=== PATIENT | male | born 1975 | race Caucasian/White ===

== ENCOUNTER 2025-08-11 16:38 | Inpatient (IN) | payer OTHER, MEDICAID ==
[~2025-08-11] VITALS: Ht 177.8 cm; Wt 85.3 kg
[2025-08-11 17:05] VITALS: O2SAT 96
[2025-08-11 17:22] LABS: PLATELET COUNT (AUTO) 567 K/uL (150-450); RED BLOOD CELL COUNT(AUTO) 2.95 MIL/uL (4.5-6.0); RED CELL DISTRIBUTION WIDTH 16.4 % (11.5-15.0); WHITE BLOOD COUNT (AUTO) 23.8 K/uL (4.3-11.0)
[2025-08-11 17:35] LABS: CALCIUM, SERUM 9.9 mg/dL (8.5-10.1); CREATININE 4.8 mg/dL (0.6-1.3); SODIUM SERUM 136 mmol/L (136-145)
[2025-08-11 17:38] LABS: INR 1.15 (0.91-1.10)
[2025-08-11 17:40] LABS: UREA NITROGEN, BLOOD 83 mg/dL (7-18)
[2025-08-11 17:43] LABS: LACTIC ACID 1.7 mmol/L (0.4-2.0)
[2025-08-11 17:48] LABS: ASPARTATE AMINOTRANSFERASE 48 U/L (15-37); TOTAL PROTEIN, SERUM 9.2 g/dL (6.4-8.2)
[2025-08-11 17:49] LABS: NT-PRO BNP 43547 pg/mL (0-125)
[2025-08-11] MEDS ORDERED: INSULIN REGULAR, HUMAN 100 UNIT/ML 10 ML VIAL ONE (17:51)
[2025-08-11] MEDS ORDERED: SODIUM ZIRCONIUM CYCLOSILICATE 10 GM POWD.PACK ONE (17:51)
[2025-08-11] MEDS: INSULIN REGULAR, HUMAN 100 UNIT/ML 10 ML VIAL IV ONE (17:58)
[2025-08-11 18:08] LABS: ABG BASE EXCESS 6.5 mmol/L (-2.0-3.0); ABG OXYGEN SATURATION 98.7 % (94.0-98.0); ABG PCO2 35.4 mmHg (35.0-48.0); ABG PH 7.537 (7.350-7.450); ABG PO2 123.7 mmHg (83.0-108.0); ABG TOTAL HEMOGLOBIN 9.0 G/dL (13.5-17.5); FLOW, BLOOD GAS 5.00 L/min (0.00-30.00); FRACTIONATED INSPIRED OXYGEN 40.0 %; SITE, ABG LEFT RADIAL
[2025-08-11] MEDS: SODIUM ZIRCONIUM CYCLOSILICATE 10 GM POWD.PACK GT ONE (18:20)
[2025-08-11] MEDS ORDERED: CHOL100043 GT (18:56)
[2025-08-11] MEDS ORDERED: ASCO500T10 GT (18:56)
[2025-08-11] MEDS ORDERED: METO5TAB2 GT (18:56)
[2025-08-11] MEDS ORDERED: SUCR1ORA15 GT (18:56)
[2025-08-11] MEDS ORDERED: IPRA0.2S49 IH (18:56)
[2025-08-11] MEDS ORDERED: MINO2.5T2 GT (18:56)
[2025-08-11] MEDS ORDERED: INSU100V42 SQ (18:56)
[2025-08-11] MEDS ORDERED: AMIN30LI2 GT (18:56)
[2025-08-11] MEDS ORDERED: AMLO-212 GT (18:56)
[2025-08-11] MEDS ORDERED: VITA1TAB57 GT (18:56)
[2025-08-11] MEDS ORDERED: PANT20TA17 GT (18:56)
[2025-08-11] MEDS ORDERED: IPRA3AMP23 IH (18:56)
[2025-08-11] MEDS ORDERED: ONDA-97 GT (18:56)
[2025-08-11] MEDS ORDERED: [UNRECOGNIZED DRUG - CODE] IV (18:56)
[2025-08-11] MEDS ORDERED: BISA10SU11 RC (18:56)
[2025-08-11] MEDS ORDERED: ZINC220C6 GT (18:56)
[2025-08-11] MEDS ORDERED: METO25TA6 GT (18:56)
[2025-08-11] MEDS ORDERED: METO5TAB87 GT (18:56)
[2025-08-11] MEDS ORDERED: CALC1SOL2 GT (18:56)
[2025-08-11] MEDS ORDERED: ACET160L44 GT ×2 (18:56)
[2025-08-11] MEDS ORDERED: MIDO10TA GT (18:56)
[2025-08-11] MEDS ORDERED: HYDR-4077 GT (18:56)
[2025-08-11] MEDS ORDERED: COLL30OI TP (18:56)
[2025-08-11] MEDS ORDERED: HEPA500039 SQ (18:56)
[2025-08-11] MEDS ORDERED: ATOR40TA GT (18:56)
[2025-08-11 19:50] VITALS: O2SAT 100
[2025-08-11 20:35] VITALS: BP 111/54; TEMP 98.2; O2SAT 100
[2025-08-11] MEDS ORDERED: Z GUARD REMEDY 4 OZ OINT TP PRN (21:30)
[2025-08-11] MEDS ORDERED: ONDANSETRON HCL/PF 4 MG/2 ML VIAL IVP PRN (21:30)
[2025-08-11] MEDS ORDERED: MAGNESIUM HYDROXIDE 30 ML UDC GT PRN (21:30)
[2025-08-11] MEDS ORDERED: MAG HYDROX/AL HYDROX/SIMETH 30 ML UDC GT PRN (21:30)
[2025-08-11] MEDS: CEFTRIAXONE 1GM BAG (ER ONLY) 50 ML IV ONE (21:55)
[2025-08-11] MEDS ORDERED: INSULIN REGULAR, HUMAN 100 UNIT/ML 3 ML VIAL SQ PRN (22:00)
[2025-08-11] MEDS ORDERED: BLOOD SUGAR DIAGNOSTIC 1 EACH STRIP IN SCH (22:00)
[2025-08-11] MEDS ORDERED: DEXTROSE 50%-WATER 50 ML DISP.SYRIN IV PRN (22:00)
[2025-08-11] MEDS: CEFTRIAXONE 1 G in IV D5W 50 ML IV SCH (22:20)
[2025-08-11] MEDS ORDERED: Medication Not On Formulary EA (Ipratropium/Albuterol Sulfate (Duoneb 2.5-0.5 Mg/3 Ml So IH PRN (22:30)
[2025-08-11] MEDS ORDERED: BISACODYL SUPP (10 MG) 10 MG/SUPP.RECT SUPP.RECT RC PRN (22:30)
[2025-08-11] MEDS ORDERED: AZITHROMYCIN 500 MG VIAL ONE (22:59)
[2025-08-11] MEDS ORDERED: IPRATROPIUM NEB FS 0.5 MG/2.5 ML AMPUL.NEB IH PRN (23:00)
[2025-08-11] MEDS: AZITHROMYCIN 500 MG in IV D5W 250 ML IV SCH (23:03)
[2025-08-11 23:08] VITALS: O2SAT 100
[2025-08-12] VITALS (18 sets, daily range): BP systolic 105–119; BP diastolic 46–59; TEMP 97.6–101.5; O2SAT 91–100
[2025-08-12] MEDS ORDERED: DEXTROSE 50%-WATER 50 ML DISP.SYRIN IV PRN
[2025-08-12] MEDS: BLOOD SUGAR DIAGNOSTIC 1 EACH STRIP IN SCH (00:10)
[2025-08-12] MEDS: INSULIN REGULAR, HUMAN 100 UNIT/ML 3 ML VIAL SQ PRN (00:11)
[2025-08-12] MEDS: IPRATROPIUM NEB FS 0.5 MG/2.5 ML AMPUL.NEB IH SCH (02:13)
[2025-08-12] MEDS ORDERED: DOSING PER PHARMACY-CEFEPIME IVPB XX PRN (03:00)
[2025-08-12] MEDS ORDERED: DOSING PER PHARMACY-VANCOMYCIN IV XX PRN (03:00)
[2025-08-12] MEDS ORDERED: ALBUMIN HUMAN IV PRN ×2 (03:30)
[2025-08-12] MEDS: VANCOMYCIN 1 GM /D5W 250 ML PB IV ONE (03:50)
[2025-08-12] MEDS: VANCOMYCIN 1.75 GM in IV D5W 500 ML IV ONE (03:51)
[2025-08-12] MEDS ORDERED: CEFEPIME 1 GM VIAL ONE (04:59)
[2025-08-12] MEDS: CEFEPIME 1 GM in IV D5W 50 ML IV SCH (05:18)
[2025-08-12 07:09] LABS: PLATELET COUNT (AUTO) 477 K/uL (150-450); RED BLOOD CELL COUNT(AUTO) 2.75 MIL/uL (4.5-6.0); RED CELL DISTRIBUTION WIDTH 16.3 % (11.5-15.0); WHITE BLOOD COUNT (AUTO) 16.7 K/uL (4.3-11.0)
[2025-08-12 07:28] LABS: CALCIUM, SERUM 9.8 mg/dL (8.5-10.1); CREATININE 5.6 mg/dL (0.6-1.3); PHOSPHORUS 4.2 mg/dL (2.5-4.9); SODIUM SERUM 134.0 mmol/L (136-145)
[2025-08-12] MEDS ORDERED: VANCOMYCIN 500 MG in IV D5W 100 ML IV PRN (07:30)
[2025-08-12 07:33] LABS: UREA NITROGEN, BLOOD 96.0 mg/dL (7-18)
[2025-08-12] MEDS ORDERED: CALCITRIOL ORAL SOLUTION 1 MCG/ML GT SCH (09:00)
[2025-08-12] MEDS ORDERED: HEPARIN SODIUM, PORCINE 5000 UNITS/1 ML VIAL SQ SCH (09:00)
[2025-08-12] MEDS: DAKINS QUARTER STRENGTH (0.125%) 480 ML BOTTLE TOP SCH (09:47)
[2025-08-12] MEDS: ZINC SULFATE 220 MG CAPSULE GT SCH (09:47)
[2025-08-12] MEDS: PANTOPRAZOLE 40 MG VIAL IV SCH (09:47)
[2025-08-12] MEDS: PROSOURCE / PROSTAT (PYXIS) 30 ML UDC GT SCH (09:47)
[2025-08-12] MEDS: ASCORBIC ACID 500 MG TABLET GT SCH (09:47)
[2025-08-12] MEDS: VITAMIN B COMP W-C 1 TAB TABLET GT SCH (09:48)
[2025-08-12] MEDS: METOPROLOL TARTRATE 25 MG TABLET GT SCH (09:49)
[2025-08-12] MEDS: SUCRALFATE 1 G/10 ML UDC GT SCH (09:50)
[2025-08-12] MEDS: CHOLECALCIFEROL 1,000 UNIT TABLET (VIT D3) GT SCH (09:50)
[2025-08-12] MEDS: MINOXIDIL (2.5MG) 2.5 MG TABLET GT SCH (09:50)
[2025-08-12] MEDS: AMLODIPINE BESYLATE 5 MG TABLET GT SCH (09:50)
[2025-08-12] MEDS: THERAHONEY GEL 1.5 OZ TUBE TP SCH (09:51)
[2025-08-12] MEDS: ALBUMIN 25% 25 GM in PREMIX 1 EA IV PRN (15:12)
[2025-08-12] MEDS: NEPRO 1,000 ML BOTTLE GT PRN (16:59)
[2025-08-12] MEDS: ACETAMINOPHEN 325 MG TABLET PO PRN (20:48)
[2025-08-12] MEDS: ATORVASTATIN 40 MG TABLET GT SCH (22:17)
[2025-08-13] VITALS (62 sets, daily range): BP systolic 58–134; BP diastolic 36–93; TEMP 98.5–100.5; O2SAT 85–100
[2025-08-13 04:48] LABS: PLATELET COUNT (AUTO) 527 K/uL (150-450); RED BLOOD CELL COUNT(AUTO) 2.60 MIL/uL (4.5-6.0); RED CELL DISTRIBUTION WIDTH 17.4 % (11.5-15.0)
[2025-08-13 04:56] LABS: CALCIUM, SERUM 10.3 mg/dL (8.5-10.1); CREATININE 4.5 mg/dL (0.6-1.3); SODIUM SERUM 136.0 mmol/L (136-145); UREA NITROGEN, BLOOD 65.0 mg/dL (7-18)
[2025-08-13 05:02] LABS: ASPARTATE AMINOTRANSFERASE 64.0 U/L (15-37); TOTAL PROTEIN, SERUM 8.8 g/dL (6.4-8.2)
[2025-08-13] MEDS: PHENYLEPHRINE 10 MG/ML VIAL ONE (05:03)
[2025-08-13] MEDS: PHENYLEPHRINE 50 MG in IV NS 0.9% 245 ML IV PRN (05:08)
[2025-08-13 05:22] LABS: ABG BASE EXCESS -1.5 mmol/L (-2.0-3.0); ABG OXYGEN SATURATION 100.0 % (94.0-98.0); ABG PCO2 30.6 mmHg (35.0-48.0); ABG PH 7.468 (7.350-7.450); ABG PO2 377.2 mmHg (83.0-108.0); ABG TOTAL HEMOGLOBIN 9.3 G/dL (13.5-17.5); PEEP,BG 0 cm H2O; SET RATE, BG 28.0; SITE, ABG RIGHT BRACHIAL; VT, ABG 500 mL
[2025-08-13 05:23] LABS: LACTIC ACID 6.1 mmol/L (0.4-2.0)
[2025-08-13 05:23] LABS: WHITE BLOOD COUNT (AUTO) 35.0 K/uL (4.3-11.0)
[2025-08-13 05:55] LABS: EOSINOPHILS % (MANUAL) 1 % (0-4); LYMPHOCYTES % (MANUAL) 32 % (16-48); MONOCYTES % (MANUAL) 4 % (0-11.0); NEUTROPHILS % (MANUAL) 57 (42-76)
[2025-08-13 05:58] LABS: PLATELET ESTIMATE INCREASED
[2025-08-13] MEDS ORDERED: CALCIUM CHLORIDE 1,000 MG/10 ML DISP.SYRIN IV ONE (07:52)
[2025-08-13] MEDS ORDERED: EPINEPHRINE (1:10,000) SYRINGE 1 MG/10 ML DISP.SYRIN IVP ONE (07:52)
[2025-08-13] MEDS: PANTOPRAZOLE 40 MG/PACK PACK NG SCH (08:37)
[2025-08-13 08:50] LABS: LACTIC ACID REFLEX 2.1 mmol/L (0.4-1.9)
[2025-08-13] MEDS: CEFEPIME 1 GM in IV D5W 50 ML IV SCH (08:50)
[2025-08-13] MEDS ORDERED: DAPTOMYCIN 500 MG in IV NS 0.9% 50 ML IV SCH (09:00)
[2025-08-13] MEDS ORDERED: DAPTOMYCIN 800 MG in IV NS 0.9% 50 ML IV SCH (09:00)
[2025-08-13 10:09] LABS: CALCIUM, SERUM 10.8 mg/dL (8.5-10.1); CREATININE 4.9 mg/dL (0.6-1.3); SODIUM SERUM 141.0 mmol/L (136-145); UREA NITROGEN, BLOOD 73.0 mg/dL (7-18)
[2025-08-13] MEDS: LINEZOLID RTU BAG 600 MG in PREMIX 1 EA IV SCH (10:28)
[2025-08-13] MEDS: CALCITRIOL ORAL SOLUTION 1 MCG/ML GT SCH (12:13)
[2025-08-13 16:20] LABS: HIV-1/2 ANTIBODY REACTIVE (NONREACTIVE)
[2025-08-13] MEDS: DAKINS QUARTER STRENGTH (0.125%) 480 ML BOTTLE TOP SCH (19:59)
[2025-08-14] VITALS (34 sets, daily range): BP systolic 90–134; BP diastolic 41–61; TEMP 98.8–100.1; O2SAT 97–100
[2025-08-14 04:32] LABS: PLATELET COUNT (AUTO) 523 K/uL (150-450); RED BLOOD CELL COUNT(AUTO) 2.75 MIL/uL (4.5-6.0); RED CELL DISTRIBUTION WIDTH 16.8 % (11.5-15.0); WHITE BLOOD COUNT (AUTO) 16.0 K/uL (4.3-11.0)
[2025-08-14 04:40] LABS: CALCIUM, SERUM 10.3 mg/dL (8.5-10.1); SODIUM SERUM 142.0 mmol/L (136-145)
[2025-08-14 04:44] LABS: PHOSPHORUS 2.6 mg/dL (2.5-4.9)
[2025-08-14 04:51] LABS: CREATININE 5.4 mg/dL (0.6-1.3)
[2025-08-14 05:07] LABS: UREA NITROGEN, BLOOD 82.0 mg/dL (7-18)
[2025-08-14] MEDS: EPOETIN ALFA (10,000 UNIT) 10,000 UNIT/ML VIAL SQ SCH (17:16)
[2025-08-14] MEDS ORDERED: MICAFUNGIN SODIUM 150 MG in IV NS 0.9% 100 ML IV SCH (23:00)
[2025-08-14] MEDS: ACETYLCYSTEINE 10% SOLN 400 MG/4 ML VIAL NEB SCH (23:03)
[2025-08-14] MEDS: MEROPENEM 500MG/NS 50 ML PB IV ONE (23:16)
[2025-08-14] MEDS: MEROPENEM 500 MG in IV NS 0.9% 50 ML IV SCH (23:17)
[2025-08-14] MEDS ORDERED: MICAFUNGIN SODIUM 100 MG VIAL IV ONE (23:32)
[2025-08-15] VITALS (24 sets, daily range): BP systolic 95–134; BP diastolic 44–59; TEMP 98.2–101.1; O2SAT 97–100
[2025-08-15 04:56] LABS: PLATELET COUNT (AUTO) 497 K/uL (150-450); RED BLOOD CELL COUNT(AUTO) 2.52 MIL/uL (4.5-6.0); RED CELL DISTRIBUTION WIDTH 17.2 % (11.5-15.0); WHITE BLOOD COUNT (AUTO) 20.0 K/uL (4.3-11.0)
[2025-08-15 05:00] LABS: CALCIUM, SERUM 9.4 mg/dL (8.5-10.1); CREATININE 3.8 mg/dL (0.6-1.3); SODIUM SERUM 136.0 mmol/L (136-145); UREA NITROGEN, BLOOD 48.0 mg/dL (7-18)
[2025-08-15 05:03] LABS: PHOSPHORUS 2.3 mg/dL (2.5-4.9)
[2025-08-15] MEDS ORDERED: MICAFUNGIN SODIUM 150 MG in IV NS 0.9% 100 ML IV SCH ×2 (07:30→08:00)
[2025-08-15] MEDS: MICAFUNGIN SODIUM 100 MG in IV NS 0.9% 100 ML IV SCH (08:45)
[2025-08-15] MEDS ORDERED: VANCOMYCIN HCL 1.25 GM in IV D5W 260 ML IV ONE (13:30)
[2025-08-15] MEDS ORDERED: DOSING PER PHARMACY-VANCOMYCIN IV XX PRN (15:00)
[2025-08-15] MEDS ORDERED: VANCOMYCIN HCL 1.25 GM in IV D5W 250 ML IV ONE (15:00)
[2025-08-15] MEDS: ACETAMINOPHEN 650 MG/20.3 ML UDC GT PRN (20:17)
[2025-08-15] MEDS ORDERED: ACETAMINOPHEN 325 MG TABLET MC PRN (20:30)
[2025-08-16] VITALS (24 sets, daily range): BP systolic 87–167; BP diastolic 40–69; TEMP 97.8–101.2; O2SAT 98–100
[2025-08-16] MEDS ORDERED: DEXTROSE 50%-WATER 50 ML DISP.SYRIN IV PRN
[2025-08-16 04:56] LABS: PLATELET COUNT (AUTO) 548 K/uL (150-450); RED BLOOD CELL COUNT(AUTO) 2.86 MIL/uL (4.5-6.0); RED CELL DISTRIBUTION WIDTH 16.9 % (11.5-15.0); WHITE BLOOD COUNT (AUTO) 17.2 K/uL (4.3-11.0)
[2025-08-16 05:18] LABS: CALCIUM, SERUM 10.2 mg/dL (8.5-10.1); CREATININE 5.1 mg/dL (0.6-1.3); SODIUM SERUM 137.0 mmol/L (136-145); UREA NITROGEN, BLOOD 75.0 mg/dL (7-18)
[2025-08-16] MEDS: BLOOD SUGAR DIAGNOSTIC 1 EACH STRIP IN SCH (06:12)
[2025-08-16] MEDS: INSULIN REGULAR, HUMAN 100 UNIT/ML 3 ML VIAL SQ PRN (06:14)
[2025-08-16 06:52] LABS: PHOSPHORUS 3.0 mg/dL (2.5-4.9)
[2025-08-16 07:07] LABS: *BASOS 0 % (Not Estab.); *BASOS, ABSOLUTE 0.1 x10E3/uL (0.0-0.2); *EOS 1 % (Not Estab.); *EOS, ABSOLUTE 0.2 x10E3/uL (0.0-0.4); *HCT 22.9 % (37.5-51.0); *HGB 6.8 g/dL (13.0-17.7); *IMMATURE GRANULOCYTES 1 % (Not Estab.); *IMMATURE GRANULOCYTES(ABS) 0.2 x10E3/uL (0.0-0.1); *LYMPHOCYTES 16 % (Not Estab.); *LYMPHS, ABSOLUTE 3.1 x10E3/uL (0.7-3.1); *MCH 28.3 pg (26.6-33.0); *MCHC 29.7 g/dL (31.5-35.7); *MCV 95 fL (79-97); *MONOCYTES 5 % (Not Estab.); *MONOS, ABSOLUTE 0.9 x10E3/uL (0.1-0.9); *NEUTROPHILS 77 % (Not Estab.); *NEUTROPHILS, ABSOLUTE 14.9 x10E3/uL (1.4-7.0); *PLT 531 x10E3/uL (150-450); *RBC 2.40 x10E6/uL (4.14-5.80); *RDW 14.6 % (11.6-15.4); *WBC 19.2 x10E3/uL (3.4-10.8)
[2025-08-17] VITALS (8 sets, daily range): BP systolic 91–166; BP diastolic 45–64; TEMP 98.1–102.7; O2SAT 96–100
[2025-08-17 06:42] LABS: PLATELET COUNT (AUTO) 546 K/uL (150-450); RED BLOOD CELL COUNT(AUTO) 2.87 MIL/uL (4.5-6.0); RED CELL DISTRIBUTION WIDTH 16.1 % (11.5-15.0); WHITE BLOOD COUNT (AUTO) 15.4 K/uL (4.3-11.0)
[2025-08-17 06:49] LABS: CALCIUM, SERUM 10.3 mg/dL (8.5-10.1); CREATININE 4.1 mg/dL (0.6-1.3); SODIUM SERUM 138.0 mmol/L (136-145); UREA NITROGEN, BLOOD 55.0 mg/dL (7-18)
[2025-08-17 06:55] LABS: PHOSPHORUS 3.2 mg/dL (2.5-4.9)
[2025-08-17 11:09] LABS: *% CD 4 POS. LYMPH 34.2 % (30.8-58.5); *% CD 8 POS. LYMPH 56.4 % (12.0-35.5); *ABSOLUTE CD 4 HELPER 1060 /uL (359-1519); *ABSOLUTE CD 8 SUPPRESSOR 1748 /uL (109-897); *CD4/CD8 RATIO 0.61 (0.92-3.72)
[2025-08-18] VITALS (8 sets, daily range): BP systolic 92–167; BP diastolic 43–67; TEMP 97.7–102; O2SAT 100
[2025-08-18 06:27] LABS: PLATELET COUNT (AUTO) 572 K/uL (150-450); RED BLOOD CELL COUNT(AUTO) 3.28 MIL/uL (4.5-6.0); RED CELL DISTRIBUTION WIDTH 16.6 % (11.5-15.0); WHITE BLOOD COUNT (AUTO) 19.2 K/uL (4.3-11.0)
[2025-08-18 06:34] LABS: CALCIUM, SERUM 10.2 mg/dL (8.5-10.1); CREATININE 5.4 mg/dL (0.6-1.3); SODIUM SERUM 136.0 mmol/L (136-145)
[2025-08-18 06:52] LABS: UREA NITROGEN, BLOOD 88.0 mg/dL (7-18)
[2025-08-18 07:19] LABS: PHOSPHORUS 3.9 mg/dL (2.5-4.9)
[2025-08-18] MEDS ORDERED: IV NS 0.9% 250 ML IV ONE (14:12)
[2025-08-18] MEDS ORDERED: IOHEXOL-300 100 ML VIAL IV ONE (14:12)
[2025-08-18] MEDS ORDERED: CT SWABBABLE VALVE TRANS SET 1 EA INFUS.SET MC ONE (14:12)
[2025-08-18] MEDS: MIDODRINE HCL (5MG) 5 MG TABLET PO SCH (16:02)
[2025-08-18] MEDS: IV NS 0.9% 250 ML IV ONE (16:08)
[2025-08-18 20:08] LABS: LEGIONELLA PNEUMOPHILIA AB Non Reactive (Non Reactive)
[2025-08-19] VITALS (10 sets, daily range): BP systolic 100–128; BP diastolic 45–63; TEMP 97.7–98.7; O2SAT 100
[2025-08-19 07:09] LABS: *HIV-1 RNA BY PCR 43700.0 copies/mL (.); *HIV-1 log10 RNA 4.64 (.)
[2025-08-19 07:39] LABS: CALCIUM, SERUM 10.7 mg/dL (8.5-10.1); CREATININE 4.0 mg/dL (0.6-1.3); SODIUM SERUM 139.0 mmol/L (136-145); UREA NITROGEN, BLOOD 76.0 mg/dL (7-18)
[2025-08-19 08:57] LABS: PLATELET COUNT (AUTO) 556 K/uL (150-450); RED BLOOD CELL COUNT(AUTO) 2.19 MIL/uL (4.5-6.0); RED CELL DISTRIBUTION WIDTH 16.0 % (11.5-15.0); WHITE BLOOD COUNT (AUTO) 19.3 K/uL (4.3-11.0)
[2025-08-19] MEDS: PANTOPRAZOLE 40 MG VIAL IV SCH (09:14)
[2025-08-19 09:20] LABS: EOSINOPHILS % (MANUAL) 1 % (0-4); LYMPHOCYTES % (MANUAL) 12 % (16-48); MONOCYTES % (MANUAL) 2 % (0-11.0); NEUTROPHILS % (MANUAL) 85 (42-76); PLATELET ESTIMATE INCREASED
[2025-08-20] VITALS (7 sets, daily range): BP systolic 103–151; BP diastolic 50–60; TEMP 98.6–99; O2SAT 96–100
[2025-08-20 06:44] LABS: PLATELET COUNT (AUTO) 644 K/uL (150-450); RED BLOOD CELL COUNT(AUTO) 2.75 MIL/uL (4.5-6.0); RED CELL DISTRIBUTION WIDTH 15.7 % (11.5-15.0); WHITE BLOOD COUNT (AUTO) 19.2 K/uL (4.3-11.0)
[2025-08-20] MEDS ORDERED: ANESTHESIA TRAY IN PYXIS 1 EA TRAY MC ONE ×2 (07:19→09:52)
[2025-08-20 07:32] LABS: INR 1.19 (0.91-1.10)
[2025-08-20 07:37] LABS: CALCIUM, SERUM 10.1 mg/dL (8.5-10.1); CREATININE 5.5 mg/dL (0.6-1.3); PHOSPHORUS 2.8 mg/dL (2.5-4.9); SODIUM SERUM 137.0 mmol/L (136-145)
[2025-08-20 08:13] LABS: UREA NITROGEN, BLOOD 91.0 mg/dL (7-18)
[2025-08-20] MEDS: VANCOMYCIN POST DIALYSIS 500MG IV PRN (17:28)
[2025-08-21] VITALS: BP 111/51; TEMP 98.8; O2SAT 99
[2025-08-21 04:00] VITALS: BP 110/55; TEMP 98; O2SAT 99
[2025-08-21 07:06] LABS: CALCIUM, SERUM 9.5 mg/dL (8.5-10.1); CREATININE 3.9 mg/dL (0.6-1.3); PHOSPHORUS 2.4 mg/dL (2.5-4.9); SODIUM SERUM 139.0 mmol/L (136-145); UREA NITROGEN, BLOOD 54.0 mg/dL (7-18)
[2025-08-21 07:11] LABS: PLATELET COUNT (AUTO) 597 K/uL (150-450); RED BLOOD CELL COUNT(AUTO) 2.52 MIL/uL (4.5-6.0); RED CELL DISTRIBUTION WIDTH 16.3 % (11.5-15.0); WHITE BLOOD COUNT (AUTO) 14.9 K/uL (4.3-11.0)
[2025-08-21 08:00] VITALS: BP 114/57; TEMP 98.7; O2SAT 100
[2025-08-21] MEDS ORDERED: EPINEPHRINE (1:10,000) SYRINGE 1 MG/10 ML DISP.SYRIN IVP ONE (10:15)
[2025-08-21 12:00] VITALS: BP 122/52; TEMP 100; O2SAT 97
[2025-08-21 16:00] VITALS: BP 110/52; TEMP 98.6; O2SAT 100
[2025-08-21] MEDS: NEUTRA PHOS 1 POWD.PACKET GT ONE (16:05)
[2025-08-21 20:00] VITALS: BP 129/62; TEMP 99; O2SAT 100
[2025-08-22] VITALS: BP 121/62; TEMP 98.8; O2SAT 100
[2025-08-22 04:00] VITALS: BP 102/49; TEMP 98.2; O2SAT 100
[2025-08-22 06:49] LABS: PLATELET COUNT (AUTO) 673 K/uL (150-450); RED BLOOD CELL COUNT(AUTO) 2.63 MIL/uL (4.5-6.0); RED CELL DISTRIBUTION WIDTH 16.4 % (11.5-15.0); WHITE BLOOD COUNT (AUTO) 18.5 K/uL (4.3-11.0)
[2025-08-22 07:09] LABS: CALCIUM, SERUM 10.1 mg/dL (8.5-10.1); CREATININE 4.9 mg/dL (0.6-1.3); PHOSPHORUS 3.4 mg/dL (2.5-4.9); SODIUM SERUM 138.0 mmol/L (136-145); UREA NITROGEN, BLOOD 73.0 mg/dL (7-18)
[2025-08-22 08:00] VITALS: BP 129/52; TEMP 97.1; O2SAT 100
[2025-08-22 12:00] VITALS: BP 114/54; TEMP 97.9; O2SAT 100
[2025-08-22 16:00] VITALS: BP 94/46; TEMP 96.6; O2SAT 100
[2025-08-22 20:00] VITALS: BP 135/63; TEMP 96.8; O2SAT 100
[2025-08-22] MEDS ORDERED: MEROPENEM 500 MG VIAL IV ONE (23:18)
[2025-08-23] VITALS: BP 115/53; TEMP 97.3; O2SAT 100
[2025-08-23 04:00] VITALS: BP 114/53; TEMP 98.2; O2SAT 100
[2025-08-23 06:25] LABS: PLATELET COUNT (AUTO) 626 K/uL (150-450); RED BLOOD CELL COUNT(AUTO) 2.54 MIL/uL (4.5-6.0); RED CELL DISTRIBUTION WIDTH 16.6 % (11.5-15.0); WHITE BLOOD COUNT (AUTO) 16.3 K/uL (4.3-11.0)
[2025-08-23 06:32] LABS: CALCIUM, SERUM 9.6 mg/dL (8.5-10.1); CREATININE 3.7 mg/dL (0.6-1.3); SODIUM SERUM 135.0 mmol/L (136-145); UREA NITROGEN, BLOOD 54.0 mg/dL (7-18)
[2025-08-23 06:37] LABS: PHOSPHORUS 2.6 mg/dL (2.5-4.9)
[2025-08-23 08:00] VITALS: BP 113/59; TEMP 98.6; O2SAT 100
[2025-08-23 12:00] VITALS: BP 113/48; TEMP 97.9; O2SAT 100
[2025-08-23] MEDS ORDERED: MISCELLANEOUS MED 1 EA EA XX ONE (15:00)
[2025-08-23 16:00] VITALS: BP 109/62; TEMP 98; O2SAT 100
[2025-08-23] MEDS: CEFTAZIDIME/AVIBACTAM 0.94 GM in IV NS 0.9% 100 ML IV SCH (16:02)
[2025-08-23 20:00] VITALS: BP 107/53; TEMP 99.5; O2SAT 100
[2025-08-23] MEDS: METRONIDAZOLE 500 MG TABLET NG SCH (21:04)
[2025-08-24] VITALS: BP 132/57; TEMP 99.9; O2SAT 100
[2025-08-24 04:00] VITALS: BP 95/41; TEMP 97.7; O2SAT 100
[2025-08-24 06:45] LABS: PLATELET COUNT (AUTO) 655 K/uL (150-450); RED BLOOD CELL COUNT(AUTO) 2.67 MIL/uL (4.5-6.0); RED CELL DISTRIBUTION WIDTH 17.0 % (11.5-15.0); WHITE BLOOD COUNT (AUTO) 12.2 K/uL (4.3-11.0)
[2025-08-24 07:18] LABS: CALCIUM, SERUM 10.1 mg/dL (8.5-10.1); CREATININE 4.8 mg/dL (0.6-1.3); PHOSPHORUS 2.6 mg/dL (2.5-4.9); SODIUM SERUM 137.0 mmol/L (136-145); UREA NITROGEN, BLOOD 76.0 mg/dL (7-18)
[2025-08-24 07:19] LABS: INR 1.14 (0.91-1.10)
[2025-08-24 08:00] VITALS: BP 143/54; TEMP 97.9; O2SAT 100
[2025-08-24 12:05] VITALS: BP 141/58; TEMP 97.9; O2SAT 100
[2025-08-24 16:00] VITALS: BP 135/62; TEMP 98; O2SAT 100
[2025-08-24 20:00] VITALS: BP 135/57; TEMP 98; O2SAT 100
[2025-08-25] VITALS: BP 133/60; TEMP 98; O2SAT 100
[2025-08-25 04:00] VITALS: BP 105/51; TEMP 98; O2SAT 100
[2025-08-25 07:37] LABS: PLATELET COUNT (AUTO) 683 K/uL (150-450); RED BLOOD CELL COUNT(AUTO) 2.63 MIL/uL (4.5-6.0); RED CELL DISTRIBUTION WIDTH 16.6 % (11.5-15.0); WHITE BLOOD COUNT (AUTO) 12.6 K/uL (4.3-11.0)
[2025-08-25 08:00] VITALS: BP 124/52; TEMP 97.9; O2SAT 99
[2025-08-25 08:03] LABS: CALCIUM, SERUM 9.4 mg/dL (8.5-10.1); CREATININE 3.6 mg/dL (0.6-1.3); PHOSPHORUS 3.0 mg/dL (2.5-4.9); SODIUM SERUM 142.0 mmol/L (136-145); UREA NITROGEN, BLOOD 43.0 mg/dL (7-18)
[2025-08-25 12:00] VITALS: BP 119/52; TEMP 98.4; O2SAT 98
[2025-08-25 16:00] VITALS: BP 138/60; TEMP 97.9; O2SAT 98
[2025-08-25 20:00] VITALS: BP 129/65; TEMP 98.2; O2SAT 98
[2025-08-26] VITALS: BP 107/46; TEMP 98; O2SAT 100
[2025-08-26 04:00] VITALS: BP 101/89; TEMP 97.9; O2SAT 100
[2025-08-26 07:56] LABS: PLATELET COUNT (AUTO) 708 K/uL (150-450); RED BLOOD CELL COUNT(AUTO) 2.78 MIL/uL (4.5-6.0); RED CELL DISTRIBUTION WIDTH 17.2 % (11.5-15.0); WHITE BLOOD COUNT (AUTO) 12.6 K/uL (4.3-11.0)
[2025-08-26 08:00] VITALS: BP 149/58; TEMP 97.9; O2SAT 100
[2025-08-26 08:46] LABS: ASPARTATE AMINOTRANSFERASE 61.0 U/L (15-37); CALCIUM, SERUM 9.8 mg/dL (8.5-10.1); CREATININE 4.6 mg/dL (0.6-1.3); PHOSPHORUS 3.6 mg/dL (2.5-4.9); SODIUM SERUM 139.0 mmol/L (136-145); TOTAL PROTEIN, SERUM 8.2 g/dL (6.4-8.2); UREA NITROGEN, BLOOD 58.0 mg/dL (7-18)
[2025-08-26 12:05] VITALS: BP 130/55; TEMP 98.1; O2SAT 100
[2025-08-26 16:00] VITALS: BP 91/46; TEMP 98.8; O2SAT 100
[2025-08-26] MEDS: LIDOCAINE 1%-EPI 1:100,000 20 ML VIAL TP ONE (18:56)
[2025-08-26 20:00] VITALS: BP 118/51; TEMP 98.4; O2SAT 97
[2025-08-27] VITALS: BP 122/49; TEMP 98.1; O2SAT 100
[2025-08-27 04:00] VITALS: BP 109/49; TEMP 97.9; O2SAT 100
[2025-08-27 06:26] LABS: PLATELET COUNT (AUTO) 687 K/uL (150-450); RED BLOOD CELL COUNT(AUTO) 2.57 MIL/uL (4.5-6.0); RED CELL DISTRIBUTION WIDTH 17.6 % (11.5-15.0); WHITE BLOOD COUNT (AUTO) 12.0 K/uL (4.3-11.0)
[2025-08-27 06:37] LABS: ASPARTATE AMINOTRANSFERASE 67.0 U/L (15-37); CALCIUM, SERUM 9.9 mg/dL (8.5-10.1); CREATININE 3.6 mg/dL (0.6-1.3); PHOSPHORUS 3.2 mg/dL (2.5-4.9); SODIUM SERUM 133.0 mmol/L (136-145); TOTAL PROTEIN, SERUM 8.3 g/dL (6.4-8.2); UREA NITROGEN, BLOOD 40.0 mg/dL (7-18)
[2025-08-27 08:00] VITALS: BP 135/79; TEMP 98.1; O2SAT 100
[2025-08-27 12:00] VITALS: BP 124/55; TEMP 98.4; O2SAT 100
[2025-08-27 16:00] VITALS: BP 120/75; TEMP 100.4; O2SAT 100
[2025-08-27 20:00] VITALS: BP 142/57; TEMP 98; O2SAT 100
[2025-08-28] VITALS: BP 135/55; TEMP 97.8; O2SAT 100
[2025-08-28 04:00] VITALS: BP 102/49; TEMP 98.1; O2SAT 100
[2025-08-28 06:31] LABS: PLATELET COUNT (AUTO) 625 K/uL (150-450); RED BLOOD CELL COUNT(AUTO) 2.55 MIL/uL (4.5-6.0); RED CELL DISTRIBUTION WIDTH 17.6 % (11.5-15.0); WHITE BLOOD COUNT (AUTO) 12.6 K/uL (4.3-11.0)
[2025-08-28 06:47] LABS: ASPARTATE AMINOTRANSFERASE 60.0 U/L (15-37); CALCIUM, SERUM 10.1 mg/dL (8.5-10.1); CREATININE 4.7 mg/dL (0.6-1.3); PHOSPHORUS 3.1 mg/dL (2.5-4.9); SODIUM SERUM 136.0 mmol/L (136-145); TOTAL PROTEIN, SERUM 8.2 g/dL (6.4-8.2); UREA NITROGEN, BLOOD 49.0 mg/dL (7-18)
[2025-08-28 08:00] VITALS: BP 128/56; TEMP 97.5; O2SAT 100
[2025-08-28 12:00] VITALS: BP 96/40; TEMP 97.5; O2SAT 100
[2025-08-28 16:00] VITALS: BP 91/46; TEMP 97.5; O2SAT 100
[2025-08-28 20:00] VITALS: BP 114/52; TEMP 97.5; O2SAT 100
[2025-08-29] VITALS: BP 155/61; TEMP 98.1; O2SAT 100
[2025-08-29 04:00] VITALS: BP 138/58; TEMP 97.9; O2SAT 100
[2025-08-29 08:00] VITALS: BP 155/64; TEMP 98.2; O2SAT 100
[2025-08-29 12:00] VITALS: BP 124/54; TEMP 98.1; O2SAT 100
[2025-08-29 16:00] VITALS: BP 122/55; TEMP 99.1; O2SAT 100
[2025-08-29] MEDS: VANCOMYCIN 1 GM in IV D5W 250ml IV ONE (16:56)
[2025-08-29 18:15] LABS: CALCIUM, SERUM 9.9 mg/dL (8.5-10.1); CREATININE 6.1 mg/dL (0.6-1.3); SODIUM SERUM 133.0 mmol/L (136-145); UREA NITROGEN, BLOOD 68.0 mg/dL (7-18)
[2025-08-29 20:00] VITALS: BP 86/46; TEMP 97.2; O2SAT 100
[2025-08-29] MEDS ORDERED: VANCOMYCIN HCL 1.25 GM in IV D5W 250 ML IV SCH (21:00)
[2025-08-29] MEDS: ALBUMIN 25% 25 GM in PREMIX 1 EA IV ONE (22:00)
[2025-08-29] MEDS ORDERED: ALBUMIN 25% 100 ML IV ONE (22:52)
[2025-08-29] MEDS ORDERED: VANCOMYCIN 500 MG VIAL ONE (23:49)
[2025-08-30] VITALS (12 sets, daily range): BP systolic 97–154; BP diastolic 46–80; TEMP 97.5–99.3; O2SAT 93–100
[2025-08-30] MEDS: VANCOMYCIN POST DIALYSIS 500MG IV PRN (00:45)
[2025-08-30 06:20] LABS: PLATELET COUNT (AUTO) 514 K/uL (150-450); RED BLOOD CELL COUNT(AUTO) 2.37 MIL/uL (4.5-6.0); RED CELL DISTRIBUTION WIDTH 18.1 % (11.5-15.0); WHITE BLOOD COUNT (AUTO) 13.3 K/uL (4.3-11.0)
[2025-08-30 06:41] LABS: CALCIUM, SERUM 9.6 mg/dL (8.5-10.1); CREATININE 3.7 mg/dL (0.6-1.3); SODIUM SERUM 139.0 mmol/L (136-145); UREA NITROGEN, BLOOD 37.0 mg/dL (7-18)
[2025-08-30] MEDS: POTASSIUM CL. PREMIX PERIPHER. 50 ML IV SCH (10:07)
[2025-08-30 11:37] LABS: EOSINOPHILS % (MANUAL) 2 % (0-4); LYMPHOCYTES % (MANUAL) 11 % (16-48); MONOCYTES % (MANUAL) 6 % (0-11.0); NEUTROPHILS % (MANUAL) 81 (42-76); PLATELET ESTIMATE ADEQUATE
[2025-08-31] VITALS (9 sets, daily range): BP systolic 104–133; BP diastolic 50–70; TEMP 97.3–99.5; O2SAT 99–100
[2025-08-31 05:55] LABS: PLATELET COUNT (AUTO) 462 K/uL (150-450); RED BLOOD CELL COUNT(AUTO) 2.99 MIL/uL (4.5-6.0); RED CELL DISTRIBUTION WIDTH 17.4 % (11.5-15.0); WHITE BLOOD COUNT (AUTO) 12.9 K/uL (4.3-11.0)
[2025-08-31 06:06] LABS: ASPARTATE AMINOTRANSFERASE 58.0 U/L (15-37); CALCIUM, SERUM 10.1 mg/dL (8.5-10.1); CREATININE 3.7 mg/dL (0.6-1.3); PHOSPHORUS 2.0 mg/dL (2.5-4.9); SODIUM SERUM 138.0 mmol/L (136-145); TOTAL PROTEIN, SERUM 7.9 g/dL (6.4-8.2); UREA NITROGEN, BLOOD 36.0 mg/dL (7-18)
[2025-08-31 10:10] LABS: ABG BASE EXCESS 6.6 mmol/L (-2.0-3.0); ABG OXYGEN SATURATION 96.1 % (94.0-98.0); ABG PCO2 24.6 mmHg (35.0-48.0); ABG PH 7.659 (7.350-7.450); ABG PO2 78.4 mmHg (83.0-108.0); ABG TOTAL HEMOGLOBIN 9.0 G/dL (13.5-17.5); PEEP,BG 0 cm H2O; SET RATE, BG 28.0; SITE, ABG LEFT RADIAL; VT, ABG 500 mL
[2025-08-31] MEDS ORDERED: LORAZEPAM 4 MG/ML VIAL IV PRN (10:30)
[2025-08-31] MEDS: LORAZEPAM INJ 2 MG/ML VIAL IV PRN (10:58)
[2025-08-31] MEDS ORDERED: ALBUTEROL FS 2.5 MG/3 ML VIAL.NEB NEB STA (15:27)
[2025-08-31 22:08] LABS: HEPATITIS B CORE AB, TOTAL Positive (Negative)
[2025-09-01] VITALS: BP 98/52; TEMP 99; O2SAT 100
[2025-09-01 04:00] VITALS: BP 105/54; TEMP 98.2; O2SAT 100
[2025-09-01 07:04] LABS: PLATELET COUNT (AUTO) 435 K/uL (150-450); RED BLOOD CELL COUNT(AUTO) 2.96 MIL/uL (4.5-6.0); RED CELL DISTRIBUTION WIDTH 17.6 % (11.5-15.0); WHITE BLOOD COUNT (AUTO) 11.8 K/uL (4.3-11.0)
[2025-09-01 07:13] LABS: CALCIUM, SERUM 10.5 mg/dL (8.5-10.1); CREATININE 4.5 mg/dL (0.6-1.3); SODIUM SERUM 139.0 mmol/L (136-145); UREA NITROGEN, BLOOD 45.0 mg/dL (7-18)
[2025-09-01] MEDS: MIDODRINE HCL (5MG) 5 MG TABLET GT PRN (14:54)
[2025-09-01 14:55] VITALS: BP 94/56; TEMP 99; O2SAT 100
[2025-09-01 16:00] VITALS: BP 89/53; TEMP 97.9; O2SAT 99
[2025-09-01 20:00] VITALS: BP 128/64; TEMP 99.1; O2SAT 99
[2025-09-01] MEDS: IV D5/ 0.9% NACL 1,000 ML IV PRN (23:23)
[2025-09-02] VITALS (8 sets, daily range): BP systolic 105–144; BP diastolic 50–71; TEMP 97.5–99.6; O2SAT 96–100
[2025-09-02 05:58] LABS: PLATELET COUNT (AUTO) 355 K/uL (150-450); RED BLOOD CELL COUNT(AUTO) 2.61 MIL/uL (4.5-6.0); RED CELL DISTRIBUTION WIDTH 17.7 % (11.5-15.0); WHITE BLOOD COUNT (AUTO) 9.0 K/uL (4.3-11.0)
[2025-09-02 06:08] LABS: CALCIUM, SERUM 10.2 mg/dL (8.5-10.1); CREATININE 3.9 mg/dL (0.6-1.3); PHOSPHORUS 2.4 mg/dL (2.5-4.9); SODIUM SERUM 139.0 mmol/L (136-145); UREA NITROGEN, BLOOD 40.0 mg/dL (7-18)
[2025-09-02 06:29] LABS: INR 1.24 (0.91-1.10)
[2025-09-02] MEDS ORDERED: IOHEXOL 50 ML IV ONE (14:39)
[2025-09-02] MEDS ORDERED: LIDOCAINE HCL/MPF 1% 30 ML VIAL IJ ONE (14:39)
[2025-09-02] MEDS ORDERED: HEPARIN SODIUM, PORCINE 1,000 UNIT/ML VIAL ONE (14:39)
[2025-09-03] VITALS: BP 117/56; TEMP 98.7; O2SAT 100
[2025-09-03 04:00] VITALS: BP 114/55; TEMP 98.4; O2SAT 100
[2025-09-03 07:19] LABS: PLATELET COUNT (AUTO) 362 K/uL (150-450); RED BLOOD CELL COUNT(AUTO) 2.80 MIL/uL (4.5-6.0); RED CELL DISTRIBUTION WIDTH 17.8 % (11.5-15.0); WHITE BLOOD COUNT (AUTO) 8.5 K/uL (4.3-11.0)
[2025-09-03 07:35] LABS: CALCIUM, SERUM 10.5 mg/dL (8.5-10.1); CREATININE 5.0 mg/dL (0.6-1.3); PHOSPHORUS 3.0 mg/dL (2.5-4.9); SODIUM SERUM 140.0 mmol/L (136-145); UREA NITROGEN, BLOOD 49.0 mg/dL (7-18)
[2025-09-03 08:00] VITALS: BP 116/47; TEMP 98.4; O2SAT 99
[2025-09-03 12:00] VITALS: BP 120/56; TEMP 98.6; O2SAT 100
[2025-09-03 16:00] VITALS: BP 110/53; TEMP 97.1; O2SAT 100
[2025-09-03 20:00] VITALS: BP 113/52; TEMP 97.7; O2SAT 100
[2025-09-04] VITALS: BP 127/51; TEMP 97.7; O2SAT 100
[2025-09-04 04:00] VITALS: BP 143/49; TEMP 97.5; O2SAT 100
[2025-09-04 05:57] LABS: PLATELET COUNT (AUTO) 379 K/uL (150-450); RED BLOOD CELL COUNT(AUTO) 3.32 MIL/uL (4.5-6.0); RED CELL DISTRIBUTION WIDTH 17.9 % (11.5-15.0); WHITE BLOOD COUNT (AUTO) 10.7 K/uL (4.3-11.0)
[2025-09-04 06:13] LABS: CALCIUM, SERUM 10.8 mg/dL (8.5-10.1); CREATININE 3.5 mg/dL (0.6-1.3); PHOSPHORUS 2.4 mg/dL (2.5-4.9); SODIUM SERUM 140.0 mmol/L (136-145); UREA NITROGEN, BLOOD 34.0 mg/dL (7-18)
[2025-09-04 08:00] VITALS: BP 101/49; TEMP 97.9; O2SAT 100
[2025-09-04 12:00] VITALS: BP 110/50; TEMP 99.3; O2SAT 100
[2025-09-04 16:00] VITALS: BP 109/48; TEMP 99.1; O2SAT 100
[2025-09-04 20:00] VITALS: BP 116/58; TEMP 98.1; O2SAT 100
[2025-09-05] VITALS (7 sets, daily range): BP systolic 102–141; BP diastolic 44–54; TEMP 97.5–99.1; O2SAT 100
[2025-09-05 06:49] LABS: PLATELET COUNT (AUTO) 362 K/uL (150-450); RED BLOOD CELL COUNT(AUTO) 3.16 MIL/uL (4.5-6.0); RED CELL DISTRIBUTION WIDTH 18.1 % (11.5-15.0); WHITE BLOOD COUNT (AUTO) 12.4 K/uL (4.3-11.0)
[2025-09-05 07:13] LABS: CALCIUM, SERUM 11.1 mg/dL (8.5-10.1); CREATININE 4.4 mg/dL (0.6-1.3); PHOSPHORUS 2.3 mg/dL (2.5-4.9); SODIUM SERUM 137.0 mmol/L (136-145); UREA NITROGEN, BLOOD 45.0 mg/dL (7-18)
[2025-09-05] MEDS: PANTOPRAZOLE 40 MG/PACK PACK GT SCH (09:30)
[2025-09-06] VITALS: BP 135/51; TEMP 97.7; O2SAT 100
[2025-09-06 04:00] VITALS: BP 138/50; TEMP 100.4; O2SAT 100
[2025-09-06 06:57] LABS: PLATELET COUNT (AUTO) 315 K/uL (150-450); RED BLOOD CELL COUNT(AUTO) 2.83 MIL/uL (4.5-6.0); RED CELL DISTRIBUTION WIDTH 17.9 % (11.5-15.0); WHITE BLOOD COUNT (AUTO) 10.9 K/uL (4.3-11.0)
[2025-09-06 07:14] LABS: CALCIUM, SERUM 10.1 mg/dL (8.5-10.1); CREATININE 3.4 mg/dL (0.6-1.3); PHOSPHORUS 1.8 mg/dL (2.5-4.9); SODIUM SERUM 135.0 mmol/L (136-145); UREA NITROGEN, BLOOD 35.0 mg/dL (7-18)
[2025-09-06 08:00] VITALS: BP 123/50; TEMP 98.3; O2SAT 100
[2025-09-06 12:00] VITALS: BP 123/52; TEMP 98.4; O2SAT 98
[2025-09-06 16:00] VITALS: BP 118/52; TEMP 99.1; O2SAT 100
[2025-09-06 20:00] VITALS: BP 115/44; TEMP 99.6; O2SAT 100
[2025-09-07] VITALS (7 sets, daily range): BP systolic 93–144; BP diastolic 44–57; TEMP 98.1–100.5; O2SAT 98–100
[2025-09-07 06:56] LABS: PLATELET COUNT (AUTO) 367 K/uL (150-450); RED BLOOD CELL COUNT(AUTO) 3.29 MIL/uL (4.5-6.0); RED CELL DISTRIBUTION WIDTH 17.7 % (11.5-15.0); WHITE BLOOD COUNT (AUTO) 15.9 K/uL (4.3-11.0)
[2025-09-07 07:25] LABS: CALCIUM, SERUM 11.2 mg/dL (8.5-10.1); CREATININE 4.2 mg/dL (0.6-1.3); PHOSPHORUS 1.8 mg/dL (2.5-4.9); SODIUM SERUM 133.0 mmol/L (136-145); UREA NITROGEN, BLOOD 50.0 mg/dL (7-18)
[2025-09-07] MEDS ORDERED: DEXTROSE 50%-WATER 50 ML DISP.SYRIN IV PRN (11:30)
[2025-09-07] MEDS: BLOOD SUGAR DIAGNOSTIC 1 EACH STRIP IN SCH (11:52)
[2025-09-07] MEDS: INSULIN REGULAR, HUMAN 100 UNIT/ML 3 ML VIAL SQ PRN (11:56)
[2025-09-08] VITALS (14 sets, daily range): BP systolic 114–142; BP diastolic 47–62; TEMP 97.5–100; O2SAT 100
[2025-09-08 06:33] LABS: CALCIUM, SERUM 10.4 mg/dL (8.5-10.1); CREATININE 3.8 mg/dL (0.6-1.3); PHOSPHORUS 2.4 mg/dL (2.5-4.9); SODIUM SERUM 135.0 mmol/L (136-145); UREA NITROGEN, BLOOD 49.0 mg/dL (7-18)
[2025-09-08 07:03] LABS: PLATELET COUNT (AUTO) 302 K/uL (150-450); RED BLOOD CELL COUNT(AUTO) 2.64 MIL/uL (4.5-6.0); RED CELL DISTRIBUTION WIDTH 17.7 % (11.5-15.0); WHITE BLOOD COUNT (AUTO) 11.8 K/uL (4.3-11.0)
[2025-09-08 10:52] LABS: EOSINOPHILS % (MANUAL) 1 % (0-4); LYMPHOCYTES % (MANUAL) 8 % (16-48); MONOCYTES % (MANUAL) 7 % (0-11.0); NEUTROPHILS % (MANUAL) 84 (42-76); PLATELET ESTIMATE ADEQUATE
[2025-09-08] MEDS: BACLOFEN (10 MG) 10 MG TABLET PEG SCH (13:38)
[2025-09-08] MEDS: NEUTRA PHOS 1 POWD.PACKET GT ONE (17:16)
[2025-09-09] VITALS: BP 123/50; TEMP 97.5; O2SAT 100
[2025-09-09 04:00] VITALS: BP 128/55; TEMP 99.3; O2SAT 100
[2025-09-09 07:28] LABS: CALCIUM, SERUM 11.6 mg/dL (8.5-10.1); CREATININE 4.6 mg/dL (0.6-1.3); PHOSPHORUS 3.6 mg/dL (2.5-4.9); SODIUM SERUM 136.0 mmol/L (136-145); UREA NITROGEN, BLOOD 65.0 mg/dL (7-18)
[2025-09-09 08:00] VITALS: BP 126/56; TEMP 99.3; O2SAT 100
[2025-09-09 09:42] LABS: PLATELET COUNT (AUTO) 341 K/uL (150-450); RED BLOOD CELL COUNT(AUTO) 3.47 MIL/uL (4.5-6.0); RED CELL DISTRIBUTION WIDTH 16.7 % (11.5-15.0); WHITE BLOOD COUNT (AUTO) 12.9 K/uL (4.3-11.0)
[2025-09-09 10:07] LABS: ASPARTATE AMINOTRANSFERASE 101.0 U/L (15-37); TOTAL PROTEIN, SERUM 8.4 g/dL (6.4-8.2)
[2025-09-09 12:00] VITALS: BP 122/53; TEMP 98.2; O2SAT 99
[2025-09-09 16:00] VITALS: BP 118/56; TEMP 98.1; O2SAT 100
[2025-09-09 20:00] VITALS: BP 90/47; TEMP 98.2; O2SAT 100
[2025-09-09] MEDS: MIDODRINE HCL (5MG) 5 MG TABLET PO ONE (22:16)
[2025-09-10] VITALS (7 sets, daily range): BP systolic 105–145; BP diastolic 51–60; TEMP 97.5–210.7; O2SAT 97–100
[2025-09-10 06:27] LABS: PLATELET COUNT (AUTO) 341 K/uL (150-450); RED BLOOD CELL COUNT(AUTO) 3.54 MIL/uL (4.5-6.0); RED CELL DISTRIBUTION WIDTH 17.1 % (11.5-15.0); WHITE BLOOD COUNT (AUTO) 11.2 K/uL (4.3-11.0)
[2025-09-10 06:42] LABS: CALCIUM, SERUM 11.4 mg/dL (8.5-10.1); CREATININE 4.2 mg/dL (0.6-1.3); SODIUM SERUM 136.0 mmol/L (136-145); UREA NITROGEN, BLOOD 63.0 mg/dL (7-18)
[2025-09-10 06:47] LABS: ASPARTATE AMINOTRANSFERASE 93.0 U/L (15-37); TOTAL PROTEIN, SERUM 8.4 g/dL (6.4-8.2)
[2025-09-11] VITALS (8 sets, daily range): BP systolic 116–140; BP diastolic 46–58; TEMP 97.7–406.2; O2SAT 98–100
[2025-09-11 06:21] LABS: PLATELET COUNT (AUTO) 402 K/uL (150-450); RED BLOOD CELL COUNT(AUTO) 3.13 MIL/uL (4.5-6.0); RED CELL DISTRIBUTION WIDTH 16.8 % (11.5-15.0); WHITE BLOOD COUNT (AUTO) 13.5 K/uL (4.3-11.0)
[2025-09-11 06:53] LABS: ASPARTATE AMINOTRANSFERASE 62.0 U/L (15-37); CALCIUM, SERUM 11.7 mg/dL (8.5-10.1); CREATININE 5.2 mg/dL (0.6-1.3); SODIUM SERUM 136.0 mmol/L (136-145); TOTAL PROTEIN, SERUM 7.8 g/dL (6.4-8.2); UREA NITROGEN, BLOOD 76.0 mg/dL (7-18)
[2025-09-12] VITALS: BP 111/56; TEMP 98; O2SAT 100
[2025-09-12 04:00] VITALS: BP 102/51; TEMP 98.1; O2SAT 99
[2025-09-12 07:26] LABS: PLATELET COUNT (AUTO) 469 K/uL (150-450); RED BLOOD CELL COUNT(AUTO) 3.13 MIL/uL (4.5-6.0); RED CELL DISTRIBUTION WIDTH 16.8 % (11.5-15.0); WHITE BLOOD COUNT (AUTO) 10.6 K/uL (4.3-11.0)
[2025-09-12 07:35] LABS: ASPARTATE AMINOTRANSFERASE 60.0 U/L (15-37); CALCIUM, SERUM 11.2 mg/dL (8.5-10.1); CREATININE 3.9 mg/dL (0.6-1.3); SODIUM SERUM 138.0 mmol/L (136-145); TOTAL PROTEIN, SERUM 8.0 g/dL (6.4-8.2); UREA NITROGEN, BLOOD 51.0 mg/dL (7-18)
[2025-09-12 08:00] VITALS: BP 129/49; TEMP 98.6; O2SAT 100
[2025-09-12] MEDS: INSULIN GLARGINE, 100 UNIT/ML CARTRIDGE SQ SCH (11:19)
[2025-09-12 12:00] VITALS: BP 119/49; TEMP 99; O2SAT 100
[2025-09-12 16:00] VITALS: BP 114/47; TEMP 99.2; O2SAT 100
[2025-09-12 20:00] VITALS: BP 134/55; TEMP 99.5; O2SAT 100
[2025-09-12] MEDS: ALBUTEROL FS 2.5 MG/0.5 ML VIAL.NEB NEB PRN (20:57)
[2025-09-13] VITALS: BP 131/53; TEMP 98.6; O2SAT 100
[2025-09-13 04:00] VITALS: BP 144/55; TEMP 98.2; O2SAT 100
[2025-09-13 06:23] LABS: PLATELET COUNT (AUTO) 524 K/uL (150-450); RED BLOOD CELL COUNT(AUTO) 3.24 MIL/uL (4.5-6.0); RED CELL DISTRIBUTION WIDTH 17.3 % (11.5-15.0); WHITE BLOOD COUNT (AUTO) 12.4 K/uL (4.3-11.0)
[2025-09-13 06:32] LABS: CALCIUM, SERUM 11.5 mg/dL (8.5-10.1); CREATININE 4.7 mg/dL (0.6-1.3); SODIUM SERUM 138.0 mmol/L (136-145); UREA NITROGEN, BLOOD 65.0 mg/dL (7-18)
[2025-09-13 06:38] LABS: ASPARTATE AMINOTRANSFERASE 60.0 U/L (15-37); TOTAL PROTEIN, SERUM 7.9 g/dL (6.4-8.2)
[2025-09-13 08:10] VITALS: BP 142/51; TEMP 97.9; O2SAT 100
[2025-09-13 12:05] VITALS: BP 112/50; TEMP 99.2; O2SAT 99
[2025-09-13 16:10] VITALS: BP 105/50; TEMP 99.8; O2SAT 99
[2025-09-13] MEDS ORDERED: DOSING PER PHARMACY-VANCOMYCIN IV XX PRN (18:00)
[2025-09-13 20:00] VITALS: BP 108/54; TEMP 97.3; O2SAT 100
[2025-09-13] MEDS ORDERED: ALBUMIN 25% 100 ML IV ONE (20:35)
[2025-09-14] VITALS: BP 155/50; TEMP 97.5; O2SAT 100
[2025-09-14 04:00] VITALS: BP 148/58; TEMP 97.3; O2SAT 100
[2025-09-14 05:53] LABS: PLATELET COUNT (AUTO) 563 K/uL (150-450); RED BLOOD CELL COUNT(AUTO) 3.40 MIL/uL (4.5-6.0); RED CELL DISTRIBUTION WIDTH 17.3 % (11.5-15.0); WHITE BLOOD COUNT (AUTO) 12.5 K/uL (4.3-11.0)
[2025-09-14 05:58] LABS: CALCIUM, SERUM 11.9 mg/dL (8.5-10.1); CREATININE 3.9 mg/dL (0.6-1.3); SODIUM SERUM 138.0 mmol/L (136-145); UREA NITROGEN, BLOOD 54.0 mg/dL (7-18)
[2025-09-14 06:04] LABS: ASPARTATE AMINOTRANSFERASE 63.0 U/L (15-37); TOTAL PROTEIN, SERUM 8.5 g/dL (6.4-8.2)
[2025-09-14 08:00] VITALS: BP 166/59; TEMP 98.7; O2SAT 100
[2025-09-14 12:00] VITALS: BP 123/49; TEMP 100; O2SAT 100
[2025-09-14 16:00] VITALS: BP 110/53; TEMP 98.8; O2SAT 100
[2025-09-14 20:00] VITALS: BP 136/56; TEMP 99.3; O2SAT 98
[2025-09-15] VITALS (7 sets, daily range): BP systolic 94–138; BP diastolic 38–55; TEMP 98.1–99.7; O2SAT 100
[2025-09-15 06:59] LABS: PLATELET COUNT (AUTO) 574 K/uL (150-450); RED BLOOD CELL COUNT(AUTO) 3.40 MIL/uL (4.5-6.0); RED CELL DISTRIBUTION WIDTH 17.0 % (11.5-15.0); WHITE BLOOD COUNT (AUTO) 13.7 K/uL (4.3-11.0)
[2025-09-15 07:17] LABS: ASPARTATE AMINOTRANSFERASE 67.0 U/L (15-37); CREATININE 4.7 mg/dL (0.6-1.3); SODIUM SERUM 138.0 mmol/L (136-145); TOTAL PROTEIN, SERUM 8.5 g/dL (6.4-8.2); UREA NITROGEN, BLOOD 71.0 mg/dL (7-18)
[2025-09-15 07:22] LABS: CALCIUM, SERUM 12.5 mg/dL (8.5-10.1)
[2025-09-16] VITALS: BP 90/41; TEMP 98.6; O2SAT 100
[2025-09-16 04:00] VITALS: BP 139/53; TEMP 98.2; O2SAT 100
[2025-09-16 04:07] LABS: HEPATITIS B CORE AB, IgM Negative (Negative); HEPATITIS B CORE AB, TOTAL Positive (Negative)
[2025-09-16 07:46] LABS: PLATELET COUNT (AUTO) 599 K/uL (150-450); RED BLOOD CELL COUNT(AUTO) 3.44 MIL/uL (4.5-6.0); RED CELL DISTRIBUTION WIDTH 17.2 % (11.5-15.0); WHITE BLOOD COUNT (AUTO) 14.7 K/uL (4.3-11.0)
[2025-09-16 07:49] LABS: CALCIUM, SERUM 12.4 mg/dL (8.5-10.1); CREATININE 3.9 mg/dL (0.6-1.3); SODIUM SERUM 138.0 mmol/L (136-145); UREA NITROGEN, BLOOD 60.0 mg/dL (7-18)
[2025-09-16 07:56] LABS: ASPARTATE AMINOTRANSFERASE 74.0 U/L (15-37); TOTAL PROTEIN, SERUM 8.6 g/dL (6.4-8.2)
[2025-09-16 08:00] VITALS: BP 147/56; TEMP 98.4; O2SAT 99
[2025-09-16] MEDS ORDERED: DOSING PER PHARMACY-ZOSYN IV 1 EA EA XX PRN (10:00)
[2025-09-16] MEDS: PIPERACILLIN /TAZOBACTAM 2.25 G in IV D5W 50 ML IV SCH (11:17)
[2025-09-16] MEDS: LINEZOLID 600 MG TABLET GT SCH (11:32)
[2025-09-16 12:00] VITALS: BP 151/57; TEMP 98.4; O2SAT 100
[2025-09-16 16:00] VITALS: BP 100/45; TEMP 98.8; O2SAT 100
[2025-09-16 17:04] VITALS: BP 128/58
[2025-09-16] MEDS: METOPROLOL TARTRATE 25 MG TABLET GT ONE (17:04)
== END 2025-09-16 19:30 | DRG 280 ==
LOC: ER 16:47 → TELE-TD 19:54 → TELE1 08-12 00:39 → ICU 08-13 04:26 → TELE1 08-16 18:26
PROVIDERS: ADMIT Registered Nurse Psychiatric/Mental Health; ATTEND Nurse Practitioner Family
PROC: 5A1D70Z Performance of Urinary Filtration, Intermittent, Less than 6 Hours Per Day (ICD-10-PCS; 2025-08-12)
PROC: 5A1955Z Respiratory Ventilation, Greater than 96 Consecutive Hours (ICD-10-PCS; principal; 2025-08-13)
PROC: 5A12012 Performance of Cardiac Output, Single, Manual (ICD-10-PCS; 2025-08-13)
PROC: 30233N1 Transfusion of Nonautologous Red Blood Cells into Peripheral Vein, Percutaneous Approach (ICD-10-PCS; 2025-08-19)
PROC: 0DP68UZ Removal of Feeding Device from Stomach, Via Natural or Artificial Opening Endoscopic (ICD-10-PCS; 2025-08-20)
PROC: 0W3P8ZZ Control Bleeding in Gastrointestinal Tract, Via Natural or Artificial Opening Endoscopic (ICD-10-PCS; 2025-08-20)
PROC: 0DH63UZ Insertion of Feeding Device into Stomach, Percutaneous Approach (ICD-10-PCS; 2025-08-24)
PROC: 05PYX3Z Removal of Infusion Device from Upper Vein, External Approach (ICD-10-PCS; 2025-08-26)
PROC: 06HY33Z Insertion of Infusion Device into Lower Vein, Percutaneous Approach (ICD-10-PCS; 2025-08-29)
PROC: 0JH63XZ Insertion of Tunneled Vascular Access Device into Chest Subcutaneous Tissue and Fascia, Percutaneous Approach (ICD-10-PCS; 2025-09-02)
PROC: 02HV33Z Insertion of Infusion Device into Superior Vena Cava, Percutaneous Approach (ICD-10-PCS; 2025-09-02)
PROC: B518YZA Fluoroscopy of Superior Vena Cava using Other Contrast, Guidance (ICD-10-PCS; 2025-09-02)
DX: T80.211A Bloodstream infection due to central venous catheter, initial encounter (principal); A41.9 Sepsis, unspecified organism; I21.A1 Myocardial infarction type 2; L89.154 Pressure ulcer of sacral region, stage 4; L89.324 Pressure ulcer of left buttock, stage 4; L89.314 Pressure ulcer of right buttock, stage 4; I33.0 Acute and subacute infective endocarditis; J96.21 Acute and chronic respiratory failure with hypoxia; N18.6 End stage renal disease; I46.9 Cardiac arrest, cause unspecified; K26.4 Chronic or unspecified duodenal ulcer with hemorrhage; J15.0 Pneumonia due to Klebsiella pneumoniae; K25.4 Chronic or unspecified gastric ulcer with hemorrhage; R65.21 Severe sepsis with septic shock; G93.1 Anoxic brain damage, not elsewhere classified; I13.2 Hypertensive heart and chronic kidney disease with heart failure and with stage 5 chronic kidney disease, or end stage renal disease; J95.851 Ventilator associated pneumonia; D68.9 Coagulation defect, unspecified; Z99.11 Dependence on respirator [ventilator] status; J90 Pleural effusion, not elsewhere classified; Z99.2 Dependence on renal dialysis; Z93.0 Tracheostomy status; E11.65 Type 2 diabetes mellitus with hyperglycemia; D63.8 Anemia in other chronic diseases classified elsewhere; E87.20 Acidosis, unspecified; K22.10 Ulcer of esophagus without bleeding; K94.23 Gastrostomy malfunction; Z16.13 Resistance to carbapenem; Z16.21 Resistance to vancomycin; L89.810 Pressure ulcer of head, unstageable; K21.9 Gastro-esophageal reflux disease without esophagitis; K29.70 Gastritis, unspecified, without bleeding; K29.80 Duodenitis without bleeding; Y84.8 Other medical procedures as the cause of abnormal reaction of the patient, or of later complication, without mention of misadventure at the time of the procedure; E78.5 Hyperlipidemia, unspecified; L22 Diaper dermatitis; L85.3 Xerosis cutis; L89.616 Pressure-induced deep tissue damage of right heel; L89.626 Pressure-induced deep tissue damage of left heel; Z87.01 Personal history of pneumonia (recurrent); Z93.3 Colostomy status; I50.9 Heart failure, unspecified; N25.0 Renal osteodystrophy; Y73.8 Miscellaneous gastroenterology and urology devices associated with adverse incidents, not elsewhere classified; Y92.129 Unspecified place in nursing home as the place of occurrence of the external cause; I25.10 Atherosclerotic heart disease of native coronary artery without angina pectoris; R32 Unspecified urinary incontinence; E83.52 Hypercalcemia; E87.5 Hyperkalemia; E11.22 Type 2 diabetes mellitus with diabetic chronic kidney disease; Z86.74 Personal history of sudden cardiac arrest
CPT/HCPCS: 31720; 36415; 36600; 43246; 70450-TC; 71045-TC; 71250-TC; 71260-TC; 80048-TC; 80053-TC; 80076-TC; 80202-TC; 82248-TC; 82550-TC; 82803-TC; 82962-TC; 83605-TC; 83735-TC; 83880; 84100-TC; 84484-TC; 85025-TC; 85027-TC; 85610-TC; 85730-TC; 86317; 86360; 86480; 86704; 86705; 86706; 86713; 86803; 86850-TC; 87040-TC; 87070-TC; 87081-TC; 87102-TC; 87186-TC; 87205-TC; 87340; 87536; 87806; 87899; 90935-TC; 93307-TC; 94002-TC; 94003-TC; 94640-TC; 94760-TC; 94762-TC; 94799-TC; 99082-TC; A4216; A4217; A4223; A6213; A6253; A6254; A6403; A7526; C1750; C1752; C1757; C1769; C1894; G0378; J0169; J0456; J0692; J0696; J0714; J0885; J1644; J1815; J2020; J2060; J2185; J2248; J2470; J2543; J2704; J3373; J3480; J3490; J7030; J7040; J7042; J7050; J7060; P9016; P9047; Q9967